=== PATIENT | female | born 1980 | race Caucasian/White ===

== ENCOUNTER → 2020-08-03 | Outpatient (CLI) | payer OTHER ==
[~2020-08-03] MED LIST: CELEXA40 MG PO; FIBER1 GM; IMITREX 50 MG T50 M1 PO; MIRALAX255 GM PO; MULTIVITAMINS1 EAC7 PO; NEURONTIN 300M300 M2 PO; TOPAMAX50 MG PO; VITAMIN D-32000 UNIT PO
== END ==
LOC: BC 11:06
PROVIDERS: ATTEND Obstetrics & Gynecology
DX: Z12.31 Encounter for screening mammogram for malignant neoplasm of breast (principal); N64.89 Other specified disorders of breast